=== PATIENT | female | born 1970 | race Caucasian/White ===

== ENCOUNTER 2017-02-05 09:07 | Emergency (ER) | payer OTHER ==
--- NOTE | 2017-02-05 09:17 | EDPHY ---
H & P HPI/ROS: Chief complaint: Right 5th finger injury HPI: 46-year-old woman was will using a mandolin to slice potatoes when she avulsed the tip of her right 5th finger. This happened this morning. She is up -to-date in her tetanus. No other injuries. ROS: 10 point Review of Systems is negative except as noted in the HPI. Physical exam: General: Awake, alert, no acute distress Extremities: Right hand: She has an avulsion of the tip of her right little finger. Does not involve the nail or nail bed. There is small amount of capillary oozing. No other injuries. She has full range of motion. Sensations otherwise intact. Skin: No rash Constitutional: Initial Vital Signs Temperature (C) 37.0 C 02/05/17 09:18 Heart Rate 78 02/05/17 09:18 Respiratory Rate 18 02/05/17 09:18 Blood Pressure 102/58 L 02/05/17 09:18 O2 Sat (%) 99 02/05/17 09:18 O2 Delivery Mode Room Air Allergies/Adverse Reactions: Sulfa (Sulfonamide Antibiotics) Allergy (Verified 02/05/17 09:16) THERMISOL Allergy (Uncoded 06/07/09 09:23) Home Medications: Medication Instructions Recorded Celexa 02/05/17 Doxycycline Hyclate 02/05/17 Pravastatin Sodium 02/05/17 Singulair 02/05/17 Spironolactone 02/05/17 Medical Decision Making ED Course/Re-evaluation: A dressing with Surgicel, Adaptic and tube gauze was placed. Patient will be discharged with follow up with primary care physician as needed. Departure - Departure Disposition: Home, Routine, Self-Care Clinical Impression: Avulsion, finger tip Condition: Good Instructions: Skin Avulsion (ED) Additional Instructions: Leave the dressing in place for 48 hours. Follow up with primary care physician in 4-5 days for any concerns. Return to the emergency depart for increasing redness, discharge, fevers, chills , or any other concerns. Referrals: Domi Wolf [Primary Care Provider] - As per Instructions
[2017-02-05 09:21] VITALS: BP 102/58; PULSE 78; RESP 18; TEMP 98.6; O2SAT 99
== END 2017-02-05 10:02 | disposition home or self-care (01) ==
LOC: CED 09:07
DX: S61.202A Unspecified open wound of right middle finger without damage to nail, initial encounter (principal); W27.4XXA Contact with kitchen utensil, initial encounter